=== PATIENT | female | born 1940 | race Caucasian/White ===

== ENCOUNTER 2017-04-10 16:28 | Emergency (ER) | payer MEDICARE ==
[~2017-04-10] VITALS: Ht 170.2 cm; Wt 94.5 kg
[~2017-04-10 16:28] MED LIST: ACETAMINOPHEN1 EACH PO; ADVIL PM LIQUI1 EACH PO; ALBUTEROL2.5 MG/3 M INH; ALPHAGAN P5 M1 OD; ASPIRIN EC81 MG PO; B-121000 MC1; CALCIUM 250+D1 EACH PO; CEFUROXIME500 MG PO; COLACE100 MG; DEMADEX10 MG PO; ENALAPRIL MALEA10 MG PO; ENALAPRIL MALEA20 MG PO; GABAPENTIN100 MG PO; ICAPS AREDS FO1 EACH PO; IPRAT-ALBUT 0.5-3 ML INH; ISOSORBIDE MONO30 MG PO; LASIX20 MG; LEVAQUIN500 MG PO; LIPITOR40 MG PO; LUMIGAN2.5 M1 OU; METOPROLOL TART50 MG PO; MIRALAX17 GM PO; MUCINEX600 MG PO; NITROSTAT0.4 MG SL; PERFOROMIS20 MCG/2 M INH; POTASSIUM CHLO10 MEQ; POTASSIUM CHLO10 MEQ PO; PREDNISONE20 MG PO; PRILOSEC10 MG PO; PRILOSEC20 MG PO; PROAIR HFA8.5 GM INH; PULMICORT0.5 MG/2 M INH; SENOKOT8.6 MG PO; SPIRIVA RESPIMAT4 GM IH; SPIRIVA18 MCG; TORSEMIDE20 MG PO; TYLENOL325 MG PO; VASOTEC20 MG; VASOTEC20 MG PO; WARFARIN SODIUM5 MG
--- NOTE | 2017-04-10 22:37 | EKG ---
[facility] [address] [facility] [place] [address] Signed Normal sinus rhythm Possible Left atrial enlargement Borderline ECG When compared with ECG of 08-MAR-2017 10:38, premature ventricular complexes are no longer present Vent. rate has decreased BY [address] no longer depressed in Lateral leads Confirmed by CONNIE QUIGLEY MD ([id number]) on 04/10/2017 10:37:22 PM Electronically Signed By: CONNIE QUIGLEY MD 04/10/17 2237 PATIENT NAME: MAAME DENIS Electrocardiogram DATE OF : 42 PHYSICIAN: CONNIE QUIGLEY MD REPORT #: [id number] REPORT IS CONFIDENTIAL AND NOT TO BE RELEASED WITHOUT AUTHORIZATION
== END 2017-04-10 20:16 | disposition home or self-care (01) ==
LOC: ED 16:28
DX: I11.0 Hypertensive heart disease with heart failure (principal); I50.9 Heart failure, unspecified; J44.9 Chronic obstructive pulmonary disease, unspecified; I25.2 Old myocardial infarction; Z87.891 Personal history of nicotine dependence; Z86.73 Personal history of transient ischemic attack (TIA), and cerebral infarction without residual deficits; Z90.49 Acquired absence of other specified parts of digestive tract; Z90.711 Acquired absence of uterus with remaining cervical stump; Z91.040 Latex allergy status; Z88.5 Allergy status to narcotic agent; Z88.8 Allergy status to other drugs, medicaments and biological substances; Z79.82 Long term (current) use of aspirin; Z79.899 Other long term (current) drug therapy
CPT/HCPCS: 71010; 80053; 83880; 84484; 85025; 93005; 93010; 94660; 96374; 99283

== ENCOUNTER 2017-08-01 15:53 | Inpatient (IN) | payer MEDICARE ==
[~2017-08-01] VITALS: Ht 170.2 cm; Wt 94.3 kg
[2017-08-01] MEDS ORDERED: OMEPRAZOLE20 MG PO (16:12)
--- NOTE | 2017-08-01 19:23 | EKG ---
[facility] [address] [place], [place] [address] Signed Normal sinus rhythm Normal ECG When compared with ECG of 10-APR-2017 18:04, No significant change was found Confirmed by CONNIE QUIGLEY MD ([id number]) on 08/01/2017 7:23:48 PM Electronically Signed By: CONNIE QUIGLEY MD 08/01/171922 PATIENT NAME: MAAME DENIS Electrocardiogram DATE OF : 42 PHYSICIAN: CONNIE QUIGLEY MD REPORT #: [id number] REPORT IS CONFIDENTIAL AND NOT TO BE RELEASED WITHOUT AUTHORIZATION
--- NOTE | 2017-08-01 20:00 | NUR ---
PATIENT ADMISSION COMPLETED. PATIENT IS AAOX3. PATIENT OREIENTED TO ROOM, AND FLOOR. PATIENT EDUCATED ON THE USE OF THE CALL LIGHT. PATIENT DENIES ANY NEEDS AT THIS TIME. SON AT THE BEDSIDE AND WILL NOT BE STAYING WITH THE PATIENT. CALL LIGHT IN REACH. RT NOTIFIED TO ASSIST WITH HOME CPAP SETUP. PATIENT IS ON 4L VIA NC AND THIS IS CHRONIC FOR HER. PATIENT ALSO GIVEN A SANDWICH BOX PER REQUEST. CALL LIGHT IN REACH.
--- NOTE | 2017-08-01 20:00 | NUR ---
RECEIVED REPORT [id number]. FOUND PT IN CHAIR. PT HAD SOME SOB BUT HER BREATHING WAS NOT LABORED. PT COMPLAINED OF BACK PAIN IN HER LOWER BACK.
--- NOTE | 2017-08-01 22:00 | NUR ---
SBP WAS 209 UPON ARRIVAL TO FLOOR. PT AT TIMES IS TACHY 100-110. MD DENISE IS AWARE. PT IS ALERT AND ORIENTED X4 RIGHT LOWER LOBE HAS CRACKLES, ALL OTHER LOBES ARE DIMINISHED. PT WILL WEAR C-PAP ALL NIGHT. OTHER V/S ARE WDL. PT HAS EDEMA +2 BILATERAL ON ANKLES AND FEET. PT HAS BRUISING ALL OVER BOTH ARMS. RT WAS CALLED BECAUSE EVEN WITH HER C-PAP ON PT IS ONLY SATING IN THE MID TO UPPER 80'S. OVERALL PT IS SOMEWHAT WEAK.
--- NOTE | 2017-08-02 00:46 | NUR ---
PT IS RESTING AT THIS TIME.
--- NOTE | 2017-08-02 02:12 | NUR ---
V/S ARE WDL. ALL LOBES ARE STILL THE SAME WITH THE FIRST ASSESSMENT. O2 SATS ARE >90% WITH C-PAP. PT IS IN BED RESTING. PT DENIES PAIN AT THIS TIME. PT AT THIS TIME IS IN NORMAL SINUS RHYTHM.
--- NOTE | 2017-08-02 04:07 | NUR ---
PT IS SLEEPING AT THIS TIME. RT FITTED HER C-PAP MASK BETTER AND AT THIS TIME HER O2 SATS ARE 90%.
--- NOTE | 2017-08-02 05:22 | NUR ---
PT ARRIVED ON FLOOR ATOUND 1999. AT ARRIVAL SBP WAS 209, MD DENISE WAS MADE AWARE. PT HAS HAD HER HOME C-PAP ON ALL NIGHT. RT HAD TO ADJUST HER MASK X2 DUE TO ILL FIT WHICH LEFT HER O2 SATS IN THE MID 80'S. PROBLEMS SEEMS TO HAVE BEEN RESOLVED. RIGHT LOWER LOBES HAS CRACKLES, ALL OTHER LOBES ARE CLEAR BUT DIMNINISHED. PT IS A/O X4. PT IS A LITTLE WEAK AND HAS ACTIVITY INTOLERANCE. PT HAS BEEN SLEEPING A GOOD BIT SINCE ARRIVAL ON THIS FLOOR. NO NEW ISSSUES NOTED SO FAR.
--- NOTE | 2017-08-02 06:12 | NUR ---
RECEIVED CRITICAL LAB VALUE FROM LEIGHA IN LAB. NOTIFIED HOSPITALIST. NO NEW ORDERS AT THIS TIME.
--- NOTE | 2017-08-02 07:20 | NUR ---
BEDSIDE REPORT RECEIVED FROM SHARLENE DE LOS SANTOS. PT SLEEPING IN BED. CPAP ON, PT SPO2 92%. WILL CONTINUE TO MONITOR.
--- NOTE | 2017-08-02 08:40 | NUR ---
VERIFIED BLOOD BAND WITH LAB. PT SITTING UP AT SIDE OF BED EATING BREAKFAST. 4L OXYGEN NC ON PT. PT HAS CALL LIGHT. FAMILY IN ROOM.
--- NOTE | 2017-08-02 09:00 | NUR ---
During assessment, patient complained of drowsiness so her helped her put her CPAP on.
--- NOTE | 2017-08-02 09:33 | NUR ---
PT ASSESSMENT COMPLETE. PT SITTING UP IN CHAIR, CPAP ON 4L NC. PT'S LUNGS CLEAR ON ENTRY, FINE CRACKLES NOTED IN BASES BILATERALLY. PT STATES SHE HAS NOT HAD BM IN TWO DAYS, NORMALLY TAKES SENNA AT HOME. BOWEL TONES ACTIVE X 4. PT HAS BRUISING ON ARMS BILATERALLY, SKIN HAS POOR TURGOR, INTACT. PT ALERT AND ORIENTED. CALL LIGHT IN REACH. WILL CONTINUE TO MONITOR.
--- NOTE | 2017-08-02 09:37 | NUR ---
SPOKE TO DR. QUIGLEY REGARDING PT HOME SENNA USE DAILY, DR. QUIGLEY TO ORDER.
--- NOTE | 2017-08-02 10:12 | NUR ---
BLOOD TRANSFUSION STARTED, VERIFIED PT AND BLOOD WITH SHARLENE PINO. PT INFORMED OF ADVERSE REACTIONS, TO NOTIFY IF EXPERIENCING SYMPTOMS OF TRANSFUSION REACTION. PT VITALS STABLE. PT SITTING UP IN BED, CPAP ON, CONTINUOUS PULSE OX ON. BLOOD INFUSING AT 75 ML/HR.
--- NOTE | 2017-08-02 10:30 | NUR ---
PT TOLERATING BLOOD TRANSFUSION, NO ADVERSE REACTIONS EVIDENT. PT VITAL SIGNS STABLE, AFEBRILE. PT NOT SOB. TRANSFUSION NOW INFUSING AT 125 ML/HR. PT DROWSY, CPAP ON 4L O2. SPO2 95%, HR 73. CALL LIGHT IN REACH. WILL CONTINUE TO MONITOR.
--- NOTE | 2017-08-02 11:14 | NUR ---
VITALS TAKEN AFTER 1 HR OF BLOOD TRANSFUSION. VITALS STABLE, SPO2 93% ON 4L CPAP. PT HR 70, BP 160/51, RR 22. PT STATES THAT SHE "IS ANXIOUS, HAS A LOT ON HER MIND". PT LUNGS CLEAR IN UPPER LOBES, CRACKLES AUSCULTATED LEFT LOWER LOBE, RIGHT LOWER LOBE CLEAR. SOME WHEEZES PRESENT ON EXPIRATION. FINDINGS CONSISTENT WITH ASSESSMENT PRIOR TO BLOOD ADMIN. PT HAS CALL LIGHT, IV SITE WNL. BLOOD INFUSING AT 125 ML/HR.
--- NOTE | 2017-08-02 11:21 | NUR ---
Patient assisted to the bedside commode. Transferred one person assist well. Urine output was 300ml. Blood transfusion continues to run at 125ml/hr.
--- NOTE | 2017-08-02 11:48 | NUR ---
PHONE CALL RECEIVED FROM PT'S DAUGHTER TAMIE, UPDATED ON STATUS OF PT, PLAN OF CARE.
--- NOTE | 2017-08-02 12:10 | NUR ---
PT SITTING UP IN BED EATING LUNCH. BLOOD INFUSING AT 125 ML/HR. UPDATED PT ON DAUGHTERS PHONE CALL. PT HAS 4L NC ON, STUDENT NURSE IN ROOM. CALL LIGHT IS IN REACH.
--- NOTE | 2017-08-02 13:02 | NUR ---
The patient remained on 4L O2 all day; switched to nasal cannula from CPAP during meals. Pt O2 saturation remained in 87-90s all day during rest. During ativity O2 sat would drop but remain above 80. The patient received a bed bath. Pt in the process of recieving a blood transfusion and tolerating well.
--- NOTE | 2017-08-02 13:20 | NUR ---
SECOND UNIT OF PACKED RED BLOOD CELLS INFUSING AT 75 ML/HR. IV SITE WNL, FLUSHES WELL, PULLS BACK BLOOD. PT VITAL SIGNS BP 173/48, AFEBRILE, PT SPO2 95% ON 4L NC. IV LASIX GIVEN PRIOR TO STARTING SECOND UNIT PER ORDER. WILL CONTINUE TO MONITOR.
--- NOTE | 2017-08-02 13:40 | NUR ---
PT VITAL SIGNS AT 15MIN OF BLOOD INFUSION 92% ON 4L CPAP, BP 152/45, TEMP 98.4, RR 24. PT RESTING IN BED, DROWSY. PT DENIES ANY SOB. CRACKLES NOT HEARD ON AUSCULTATION OF LUNGS, LUNGS CLEAR THROUHGOUT ALL LOBES AT THIS TIME. PT HAS CALL LIGHT, PERSONAL SUPPLIES IN REACH. NO ADDITIONAL REQUESTS AT THIS TIME.
--- NOTE | 2017-08-02 13:43 | NUR ---
RED BLOOD CELLS NOW INFUSING AT 125 ML/HR, IV SITE WNL. WILL CONTINUE TO MONITOR. PT HAS CALL LIGHT.
--- NOTE | 2017-08-02 13:52 | NUR ---
PT IS RESTING IN BED SAFELY WITH EYES CLOSED, RESPERATIONS EVEN. PT DID NOT NEED VITALS TAKEN DUE TO BEING TAKEN FREQUENTLY FOR BLOOD TRANSFUSION
--- NOTE | 2017-08-02 15:30 | NUR ---
PT ASSESSMENT COMPLETE. WHEEZES PRESENT SPORADICALLY THROUGHOUT ALL LUNG LOBES, NO CRACKLES AUSCULTATED, OTHERWISE CLEAR ON ENTRY. PT DENIES FEELING SOB. IV WNL, BLOOD INFUSING AT 125 ML/HR. PT HAS CALL LIGHT IN REACH. WILL CONTINUE TO MONITOR.
--- NOTE | 2017-08-02 16:00 | NUR ---
SECOND UNIT OF RED BLOOD CELLS INFUSED. PT SATURATING AT 95% SPO2. BROUGHT PT TOOTHBRUSH AND WARM WASH RAG REQUESTED. ASSISTED PT TO BEDSIDE COMMODE. PT COMPLAINING OF DIZZINESS, ASSISTED BACK TO BED, SPO2 88%, INCREASES TO 95% WITH COACHED PURSED LIP BREATHING ON 4L NC. PT BP CHECKED 176/68 W MANUAL BP. PT THEN ASSITED TO CHAIR. FAMILY IN ROOM AT THIS TIME, BROUGHT COFFEE AND WATER TO PT AND GUESTS.
--- NOTE | 2017-08-02 16:37 | NUR ---
PATIENT GOT A BED BATH ALSO HER HAIR WASHED.
--- NOTE | 2017-08-02 18:00 | NUR ---
ANSWERED PT CALL LIGHT. PT STANDING AT BEDSIDE WHEN ARRIVED TO ROOM. EDUCATED PT ON SAFETY, TO WAIT FOR ASSISTANCE W AMBULATION. PT ASSISTED TO CHAIR, GAVE PT NEW ICE PACKS. PT STATES PAIN IS 7/10 WITH MOVEMENT IN LEFT SHOULDER/ARM. PT STATES "ICE HELPS". INFORMED PT ON PRN MEDICATIONS AND WHEN NEXT MED AVAILABLE. PT PERSONAL BELONGINS, CALL LIGHT WITHIN REACH.
--- NOTE | 2017-08-02 18:50 | NUR ---
PT RECEIVED 2 UNITS RBCS TODAY. PT TOLERATED WELL. BP CONTINUES TO BE ELEVATED THIS AFTERNOON. IV LASIX WAS ADMINISTERED BETWEEN BLOOD UNIT INFUSIONS. PT HAS HAD BED ALARM AND CHAIR ALARM IN PLACE THROUGHOUT SHIFT CONFUSED AT TIMES. PT USED BED SIDE COMMODE WITH SBA.
--- NOTE | 2017-08-02 19:15 | NUR ---
REPORT RECVD FROM ROXANNA SU, PT AWAKE SITTING UP IN BED. PT STATES SHE IS TIRED TONIGHT. CPAP IN PLACE. NO FURTHER NEEDS AT THIS TIME. BED ALARM IN PLACE PT HAS APPEARED ANXIOUS TODAY. NO FURTHER NEEDS AT THIS TIME. CALL LIGHT IN REACH.
--- NOTE | 2017-08-02 19:45 | NUR ---
IN TO SEE PT, PT AWAKE REQUESTING PM MEDICATION. VITALS OBTAINED, PM MEDICATIONS GIVEN. ASSESSMENT COMPLETE. RT IN ROOM TO WORK WITH PT. PT TOLERATED WELL. NO FURTHER NEEDS AT THIS TIME. CHAIR ALARM IN PLACE, CALL LIGHT IN REACH.
--- NOTE | 2017-08-02 21:53 | NUR ---
PATIENT IN BED, GOT HER A WARM BLANKET. DOES NOT NEED ANYTHING ELSE AT THIS TIME.
--- NOTE | 2017-08-02 22:17 | NUR ---
IN TO CHECK ON PT, PT AWAKE WATCHING TV. CPAP IN PLACE AND PULSE OX IN PLACE. NO FURTHER NEEDS AT THIS TIME. CALL LIGHT IN REACH.
--- NOTE | 2017-08-02 23:44 | NUR ---
IN TO CHECK ON PT, PT AWAKE IN BED. PT STATES SHE HAS DIFFICULTY SLEEPING AT HOME. PT NOTIFIED THAT SHE WAS GIVEN BENADRYL 50 MG AT BEDTIME, BUT WILL PASS ON TO DAY SHIFT THAT PT CONTINUES TO HAVE DIFFICULTY SLEEPING. PT AGREES TO PLAN. CPAP AND PULSE OX IN PLACE. NO FURTHER NEEDS AT TIS TIME. CALL LIGHT IN REACH.
--- NOTE | 2017-08-02 23:51 | NUR ---
PATIENT ASLEEP, DOES NOT NEED ANYTHING AT THIS TIME.
--- NOTE | 2017-08-03 01:30 | NUR ---
IN TO CHECK ON PT, PT APPEARS TO BE SLEEPING. CPAP AND PULSE OX IN PLACE. RR EVEN AND UNLABORED. NO APPARENT DISTRESS NOTED. CALL LIGHT IN REACH.
--- NOTE | 2017-08-03 02:04 | NUR ---
GOT PATIENT UP TO COMMODE AND THEN BACK TO BED. PATIENT DOES NOT NEED ANYTHING ELSE AT THIS TIME.
--- NOTE | 2017-08-03 03:24 | NUR ---
IN TO CHECK ON PT, PT AWAKE. CPAP IN PLACE AND PULSE OX @ 88%. RT IN TO SEE PT. PT REQUESTING COLA, GIVEN. NO FURTHER NEEDS AT THIS TIME. CALL LIGHT IN REACH.
--- NOTE | 2017-08-03 03:46 | NUR ---
PATIENT ASLEEP. DOES NOT NEED ANYTHING AT THIS TIME.
--- NOTE | 2017-08-03 03:56 | NUR ---
PT HAS BE UNABLE TO SLEEP THROUGH OUT THE NIGHT. O2 @ 4L PER NC, CPAP AT NIGHT. PULSE OX IN PLACE, O2 SATS 88-94%. LUNGS CLEAR BUT DIMINISHED. SOB WITH EXERTION, PT UP TO BSC AND SHORT DISTANCES. TELE #1, NSR. PT RECVD 2 UNIT PRBC 08/02/17 DURING DAY SHIFT. IV SL. BED ALARM IN PLACE PT HAD BEEN ANXIOUS AND SLIGHTLY FORGETFUL DURING DAY SHIFT. PT HAS CALL APPROPRIATLY DURING SHIFT.
--- NOTE | 2017-08-03 06:45 | NUR ---
PT CALLED REQUESTING HELP UP TO CHAIR. STANDBY ASSIST BY BLEACH MACHINE OPERATOR WITH RN IN ROOM. PT TOLERATED WELL. CPAP AND PULSE OX IN PLACE. NO FURTHER NEEDS AT THIS TIME. CALL LIGHT IN REACH.
--- NOTE | 2017-08-03 08:20 | NUR ---
PT SITTING UP IN RECLINER AWAKE UPON INITIAL ASSESSMENT. ON 4L 02 VIA NC. LUNGS SLIGHTLY WHEEZY THROUGHOUT-- BASELINE. DR QUIGLEY IN TO ASSESS PATIENT THIS MORNING. BP 168/85 BEFORE LOPRESSOR. NO CONCERNS OR NEEDS AT THIS TIME. PT SET UP FOR BREAKFAST. POSSIBLE DISCHARGE TODAY. SON ABLE TO TRANSPORT PATIENT HOME IF NEEDED.
[2017-08-03] MEDS ORDERED: PREDNISONE20 MG PO (08:46)
== END 2017-08-03 10:20 | disposition home or self-care (01) | DRG 190 ==
LOC: ED 15:53 → MS 19:09
PROVIDERS: ADMIT Internal Medicine
PROC: 30233N1 Transfusion of Nonautologous Red Blood Cells into Peripheral Vein, Percutaneous Approach (ICD-10-PCS; principal; 2017-08-01)
PROC: 3E0234Z Introduction of Serum, Toxoid and Vaccine into Muscle, Percutaneous Approach (ICD-10-PCS; 2017-08-03)
DX: J44.1 Chronic obstructive pulmonary disease with (acute) exacerbation (principal); I50.21 Acute systolic (congestive) heart failure; J96.11 Chronic respiratory failure with hypoxia; G47.33 Obstructive sleep apnea (adult) (pediatric); I25.10 Atherosclerotic heart disease of native coronary artery without angina pectoris; D50.9 Iron deficiency anemia, unspecified; I11.0 Hypertensive heart disease with heart failure; G47.00 Insomnia, unspecified; I25.2 Old myocardial infarction; Z23 Encounter for immunization; Z99.81 Dependence on supplemental oxygen; Z87.891 Personal history of nicotine dependence
CPT/HCPCS: 36415; 36430; 36600; 71010; 80048; 80053; 82803; 83605; 83735; 83880; 84100; 84484; 85025; 86850; 86900; 86901; 86920; 90662; 93005; 93010; 94640; 94762; 97165; G0008; J2930; J7512; P9016; Q0163

== ENCOUNTER 2017-08-17 13:54 | Inpatient (IN) | payer MEDICARE ==
[~2017-08-17] VITALS: Ht 170.2 cm; Wt 88.0 kg
[~2017-08-17 13:54] MED LIST changes: +OMEPRAZOLE20 MG PO
[2017-08-17] MEDS ORDERED: CLOPIDOGREL75 MG PO (14:05)
--- NOTE | 2017-08-18 21:46 | EKG ---
[facility] [address] [facility] [place] [address] Signed Normal sinus rhythm Possible Left atrial enlargement Borderline ECG When compared with ECG of 01-AUG-2017 16:22, No significant change was found Confirmed by LA VELIZ MD ([id number]) on 08/18/2017 9:45:56 PM Electronically Signed By: LA VELIZ MD 08/18/17 2146 PATIENT NAME: CIRAMAAME GI Electrocardiogram DATE OF : 42 PHYSICIAN: LA VELIZ MD REPORT #: [id number] REPORT IS CONFIDENTIAL AND NOT TO BE RELEASED WITHOUT AUTHORIZATION
--- NOTE | 2017-08-19 22:34 | EKG ---
[facility] [address] [facility] [place] [address] \T\ T wave abnormality, consider inferior ischemia Abnormal ECG When compared with ECG of 17-AUG-2017 15:38, Vent. rate has increased BY [address] now depressed in Inferior leads ST now depressed in Anterolateral leads T wave inversion now evident in Inferior leads Confirmed by LA VELIZ MD ([id number]) on 08/19/2017 10:34:22 PM Electronically Signed By: LA VELIZ MD 08/19/17 2234 PATIENT NAME: MAAME DENIS Electrocardiogram DATE OF : 42 PHYSICIAN: LA VELIZ MD REPORT #: [id number] REPORT IS CONFIDENTIAL AND NOT TO BE RELEASED WITHOUT AUTHORIZATION
[2017-08-19] MEDS ORDERED: CEFPODOXIME PR200 MG PO (23:39)
[2017-08-19] MEDS ORDERED: ISOSORBIDE MONO30 MG PO (23:39)
[2017-08-19] MEDS ORDERED: PREDNISONE20 MG PO (23:39)
[2017-08-20] MEDS ORDERED: TORSEMIDE20 MG PO (10:51)
[2017-08-20] MEDS ORDERED: AMLODIPINE BESYL5 MG PO (10:52)
== END 2017-08-20 11:45 | disposition home or self-care (01) | DRG 191 ==
LOC: ED 13:54 → MS 18:59
PROVIDERS: ADMIT Internal Medicine
DX: J44.1 Chronic obstructive pulmonary disease with (acute) exacerbation (principal); J96.12 Chronic respiratory failure with hypercapnia; J96.11 Chronic respiratory failure with hypoxia; N18.4 Chronic kidney disease, stage 4 (severe); I25.118 Atherosclerotic heart disease of native coronary artery with other forms of angina pectoris; I12.9 Hypertensive chronic kidney disease with stage 1 through stage 4 chronic kidney disease, or unspecified chronic kidney disease; K21.9 Gastro-esophageal reflux disease without esophagitis; Z91.14 Patient's other noncompliance with medication regimen; Z90.711 Acquired absence of uterus with remaining cervical stump; Z87.891 Personal history of nicotine dependence; I25.2 Old myocardial infarction; Z99.81 Dependence on supplemental oxygen
CPT/HCPCS: 36415; 71020; 80048; 80053; 82803; 83605; 83880; 84484; 85025; 85379; 87040; 87070; 87077; 87186; 87205; 93005; 93010; 94640; 94760; J0696; J1650; J2920; J2930; J7030; J7512

== ENCOUNTER 2017-12-16 04:31 | Inpatient (IN) | payer MEDICARE ==
[~2017-12-16] VITALS: Ht 170.2 cm; Wt 82.6 kg
[~2017-12-16 04:31] MED LIST changes: -ALPHAGAN P5 M1 OD; +ALPHAGAN P5 M1 OS; +AMLODIPINE BESYL5 MG PO; +CALCET CREAMY1 EACH PO; -CALCIUM 250+D1 EACH PO; +CEFPODOXIME PR200 MG PO; +CLOPIDOGREL75 MG PO
--- NOTE | 2017-12-16 06:20 | EKG ---
[facility] [address] [facility] [place] [address] Signed Normal sinus rhythm Nonspecific ST abnormality Abnormal ECG When compared with ECG of 19-AUG-2017 09:04, ST no longer depressed in Anterior leads Confirmed by CONNIE QUIGLEY MD ([id number]) on 12/16/2017 6:20:30 AM Electronically Signed By: CONNIE QUIGLEY MD 12/16/17 0620 PATIENT NAME: CIRAMAAME GI Electrocardiogram DATE OF : 42 PHYSICIAN: CONNIE QUIGLEY MD REPORT #: [id number] REPORT IS CONFIDENTIAL AND NOT TO BE RELEASED WITHOUT AUTHORIZATION
--- NOTE | 2017-12-16 06:50 | NUR ---
PATIENT ARRIVED VIA STRETCHER. PATIENT WAS ABLE TO PIVOT TRANSFER FROM THE STRETCHER TO THE RECLINER. PATIENT IS ON BIPAP AT THIS TIME. PATIENT HAS SOB W/ACTIVITY. PATIENT HAS SOB WITH TALKING AT THIS TIME. PATIENT ADMISSION COMPLETED. PATIENT IS AAOX3. PATIENT OREINTED TO ROOM, AND FLOOR. PATIENT EDUCATED ON DIET. NO NEEDS NOTED. TELE #[address] CALL LIGHT IN REACH.
--- NOTE | 2017-12-16 07:33 | NUR ---
RECIEVED BEDSIDE REPORT FROM SHARLENE BROOKS. PT IN CHAIR IN TRIPOD POSITION, WITH CPAP ON. BREATHING LABORED. FAMILY WILL BRING IN HOME CPAP.
--- NOTE | 2017-12-16 08:15 | NUR ---
PT IN CHAIR AWAKE. TOOK TO BR. AM CARE.
--- NOTE | 2017-12-16 09:19 | NUR ---
PT REFUSED AM MEDS EXCEPT MIRALAX AND LOVENOX. SHE STATED SHE TOOK HER OTHER MEDS BEFORE SHE GOT IN THE AMBULANCE THIS AM. ADVISED DR QUIGLEY, SHE IS OK WITH HER NOT TAKING AM MEDS. PT TOOK MIALAX AND LOVENOX.
--- NOTE | 2017-12-16 10:30 | NUR ---
VITALS AND I AND O DONE
--- NOTE | 2017-12-16 10:43 | NUR ---
SHARLENE SPARKS STARTED NEW IV IN RIGHT AC. PT HAS LIMITED VEIN ACCESS. ATTEMPTED X3. PT TOLERATED WELL. IV ABX RUNNING.
--- NOTE | 2017-12-16 10:51 | NUR ---
PT REQUESTED PRN BREATHING TREATMENT. CALL PLACED TO ANASTASIIA IN RT, HE WILL COME UP.
--- NOTE | 2017-12-16 10:56 | NUR ---
SPOKE WITH MAAME WHO AUTHORIZED ME TO TALK TO HER GRANDDAUGHTER MARLENI AND DAUGHTERS TAMIE AND ROXANNE. TAMIE CALLED AND THIS RN GAVE AN UPDATE. THIS RN ALSO CALLED MARLENI.
--- NOTE | 2017-12-16 12:31 | NUR ---
PT WAS SITTINGI IN CHAIR W/CPAP ON. PT SEEMED SOMEWHAT GROOGY. SHE AWOKE WHEN I CAME IN, TOLD HER I WOULD COME BACK TO LET HER ORIENT MORE. SHE AGREED
--- NOTE | 2017-12-16 12:33 | NUR ---
REMOVED PT FROM BIPAP TO NASAL CANULA SO SHE COULD EAT LUNCH. PLACED NC AT 5L. RT AND MD NOTIFIED.
--- NOTE | 2017-12-16 12:34 | NUR ---
PT IN BED SLEEPING. WILL CHECK BACK ON LATER
--- NOTE | 2017-12-16 14:01 | NUR ---
PT BACK ON CPAP. PT TOLERATED NC WELL, LOWEST O2 LEVEL SEEN BY RN WAS 91% AT REST. WHEN TRANSFERING TO [facility] [place] DESAT TO 77%. PT VOIDED. RETURNED TO CHAIR AND REPLACED ON CPAP. PT RESTING IN CHAIR. PT STATES SHE SLEEPS IN CHAIR AT HOME, SHE DOES NOT LIKE LAYING FLAT. ONCE CPAP BACK ON, PT REBOUNDED TO LOW-90S O2.
--- NOTE | 2017-12-16 14:12 | NUR ---
PT SITTING IN CHAIR, WITH CPAP ON. SHE INVITED ME IN. SHOOK MY HAND, AND BEGAN TO TELL ME THAT SHE NEEDS SOME HELP. SHE IS ON CPAP VIRTUALLY ALL DAY, AND IS VERY UNHAPPY WITH LIFE. BASICALLY SHE FEELS SHE HAS NO LIFE. PT REQUESTED I PRAY FOR HER THAT GOD WOULD HELP HER. SHE CONFESSED THAT HE HAS BEFORE, AND SHE FEELS THAT ONLY GOD CAN HELP HER NOW. SHE USED TO ATTEND [facility] [place], BUT THE [facility] HAS SINCE CLOSED. I PRAYED FOR HER, SHE THANKED ME AND SAID SHE NEEDED TO STOP TALKING. WILL FOLLOW NEEDED
--- NOTE | 2017-12-16 15:31 | NUR ---
PT IN CHAIR WITH CPAP ON. SON AT BEDSIDE. BELONGINGS IN REACH, DENIES NEED FOR BSC. NO PAIN AT THIS TIME.
[2017-12-16] MEDS ORDERED: CATAPRES TTS TD (15:50)
[2017-12-16] MEDS ORDERED: TORSEMIDE20 MG PO (15:55)
[2017-12-16] MEDS ORDERED: NITROSTAT0.4 MG SL (16:25)
[2017-12-16] MEDS ORDERED: TUSSIN100 MG/51 PO (16:25)
[2017-12-16] MEDS ORDERED: VICKS VAPORUB O50 GM TOP (16:26)
[2017-12-16] MEDS ORDERED: ISOSORBIDE MONO30 MG PO (16:38)
--- NOTE | 2017-12-16 16:38 | NUR ---
MED REC COMPLETE
--- NOTE | 2017-12-16 18:06 | NUR ---
PT STAYED ON BIPAP MOST OF THE DAY. TWO TRIALS OF NASAL CANULA AT 5L FOR APROX 2 HR EACH. PT TOLERATED WELL, EXCEPT WITH TRANSFER TO BSC. VOIDING WELL, ON PO LASIX. AGB COMPLETE. STAND PIVOT TRANSFER TO BSC. IV STEROIDS. VERBAL OK FROM PT TO GIVE INFORMATION/UPDATES TO FAMILY WHO CALL.
--- NOTE | 2017-12-16 19:39 | NUR ---
ASSISTED PATIENT TO THE BEDSIDE COMMODE. PATIENT IS BACK ON THE CHAIR. PATIENT ASKED FOR NEB TREATMENT, SHARLENE BROOKS NOTIFIED. CALL LIGHT WITHIN REACH.
--- NOTE | 2017-12-16 19:41 | NUR ---
RECEIVED REPORT FROM DAY SHIFT RN. PATIENT IS RESTING IN RECLINER WITH BIPAP IN PLACE. NO NEEDS NOTED. CALL LIGHT IN REACH.
--- NOTE | 2017-12-16 19:50 | NUR ---
PATIENT IS EXTREMELY ANXIOUS SPOKE WITH DR VELIZ. DR VELIZ PUT IN NEW ORDER.
--- NOTE | 2017-12-16 20:29 | NUR ---
PATIENT ASSESMENT COMPLETED. RT IN THE ROOM ADMINISTERING A NEB TREATMENT. PATIENTS VITALS TAKEN AND RECORDED. PATIENTS EVENING MEDCIATIONS GIVEN PER ORDER. PATIENT IS EXTREMELY ANXIOUS. PATIENT GIVEN PRN MORPHINE PER ORDER. PATIENT GIVEN A COOL RAG FOR THE BACK OF HER NECK. PATIENTS LIGHTS TURNED DOWN TO DECREASE THE STIMULI. PATIENTS CALL LIGHT IN REACH.
--- NOTE | 2017-12-16 22:54 | NUR ---
PATIENT PLACED ON PULSE OX THROUGHT THE TELE. PATIENT HAS INCREASED ANXIETY WITH THE BEDSIDE PULSE OX. PATIENT DENIES ANY NEEDS AT THIS TIME. CALL LIGHT IN REACH. PATIENT REMAINS ON BIPAP AND RESTING IN RECLINER.
--- NOTE | 2017-12-16 23:52 | NUR ---
PATIENT GIVEN PRN TYLENOL FOR PAIN IN HER LOWER LEGS. PATIENT DENIES ANY FURTHER NEEDS AT THIS TIME. PATIENT REMAINS ON BIPAP. PATIENT REMAINS IN RECLINER. CALL LIGHT IN REACH.
--- NOTE | 2017-12-17 01:43 | NUR ---
PATIENT IS INCREASINGLY ANXIOUS. PATIENT GIVEN A PRN NEB PER REQUEST. PATIENT ALSO GIVEN PRN MORPHINE. PATIENTS VITALS TAKEN AND RECORDED. PATIENT ASSISTED TO THE BSC. PATIENT WAS ABLE TO VOID. PATIENT IS NOW BACK IN THE RECLINER. RESTING. NO FURTHER NEEDS. NOTED. PATIENT IS ON TELE #1, IRREGULAR RHYTHM, HR 89. CALL LIGHT IN REACH.
--- NOTE | 2017-12-17 03:38 | NUR ---
PATIENT PLACED A CALL TO HER SON ASKING HIM TO BRING IN HER CPAP. PATIENT EDUCATED THAT SHE IS CURRENTLY ON BIPAP. PATIENT VEBALIZED UNDERSTANDING. PATIENT IS FORGETFUL AT TIMES, BUT REORIENTS EASILY. PATIENT DENIES ANY NEEDS. PATIENTS SON IS NOT BRINGING MACHINE IN AT THIS TIME.
--- NOTE | 2017-12-17 04:16 | NUR ---
PATIENT ASSISTED TO THE BSC. PATIENT ABLE TO VOID. PATIENT HAS INCREASED RR AND SOB WITH ACTIVITY. DAILY WEIGHT RECORDED. PATIENT NOW RESTING IN RECLINER. PATIENT CONTINUES TO BE ON BIPAP. PATIENT DENIES ANY NEEDS. CALL LIGHT IN [facility].
--- NOTE | 2017-12-17 05:08 | NUR ---
PATIENT STRUGGLED TO REST DURING THE SHIFT. PATIENT IS ON CLEARS AT THIS TIME. PATIENT HAS PULSE OX IN PLACE. PATIENT IS SL AND IV FLUSHES WELL. PATIENT IS ON TELE #1, HR 80-90'S. PATIENT IS A [place] [place] [facility] [place]. PATIENT HAS INCREASED SOB WITH ACTIVITY. PATIENT HAS BEEN ON BIPAP FOR THE MAJORITY OF THE SHIFT. PATIENT PRN MORPHINE X2 FOR SOB. PATIENT RECIVED PRN TYLENOL X1 FOR PAIN IN HER LEGS. PATIENT IS FORGETFUL, REORIENTS EASILY. USES CALL LIGHT APPROPRIATELY.
--- NOTE | 2017-12-17 06:30 | NUR ---
PATIENTS MORNING MEDICATIONS GIVEN PER ORDER. PATIENT CONTIUES TO BE ANXIOUS AND SOB. PATIENT GIVEN PRN MORPHINE PER ORDER. PATIENTS PULSE OX READINGS ARE WNL. PATIENT DENIES ANY FURTHER NEEDS. PATIENTS CALL LIGHT IN REACH. PATIENT REMAINS ON BIPAP.
--- NOTE | 2017-12-17 07:16 | NUR ---
RECIEVED BEDSIDE REPORT FROM SHARLENE BROOKS. PT SITTING IN CHAIR WITH BIPAP ON. PT APPEARS AXIOUS, FIDGITTY AND RESTLESS. HR PER PULSE OX IN MID-80S, O2 IN HIGH 90S. FIO2 REDUCED OVERNIGHT TO 35%. URINE OUTPUT GOOD. PT A&O X3.
--- NOTE | 2017-12-17 08:15 | NUR ---
PATIENT UP TO BSC WITH ONE PERSON ASSIST THEN BACK TO CHAIR WITH CHAIR ALARM. ORAL CARE DONE. PATIENT WASHED HANDS AND FACE. THIS TIME STUDY STATISTICIAN ASSSITED PATIENT WITH COMBING HAIR AND PULLING IT UP IN A BUN. FRESH ICE WATER GIVEN. CALL BUTTON IN REACH. NO OTHER NEEDS AT THIS TIME.
--- NOTE | 2017-12-17 08:59 | NUR ---
PT IS VERY ANXIOUS, WHICH IS CAUSING SOB AND TACY HR. PER PT REQUEST CALLED RT FOR NEB TREATMENT. PT IS STARTING TO CALM DOWN.
--- NOTE | 2017-12-17 09:59 | NUR ---
PATIENT SITTING UP IN BEDSIDE RECLINER. RN IN THE ROOM GIVING MEDS. PATIENT IN A GOOD MOOD, TALKATIVE AND SMILEY. FRESH ICE WATER AT BEDSIDE TABLE. CALL LIGHT IN REACH. NO OTHER NEEDS AT THIS TIME.
--- NOTE | 2017-12-17 10:02 | NUR ---
PT ANXIETY IS SLIGHTLY REDUCED. SITTING IN CHAIR, HAS HAD MULTIPLE PHONE CALLS FROM FAMILY. ALL BELONGINGS IN REACH. NO NEEDS AT THIS TIME.
--- NOTE | 2017-12-17 10:17 | NUR ---
CAMILLE, HOME HEALTH RN, CAME TO DISCUSS PLAN OF CARE. COPY OF HH CARE PLAN PLACED IN CHART.
--- NOTE | 2017-12-17 10:36 | NUR ---
DICUSSED PT'S ANIEXTY WITH DR VELIZ. DR VELIZ GAVE VERBAL ORDER TO GIVE 1MG MS EARLY A ONE TIME DOSE. MS GIVEN, PLACED CALL TO PT'S SON PER HER REQUEST. PT O2 LEVEL 98
--- NOTE | 2017-12-17 11:02 | NUR ---
PT TALKED TO SHARLENE MIDDLETON. PT STATED THAT SHE FEELS LIKE SHE IS GOING TO TODAY. SHE STATED SHE IS TIRED OF FIGHTING, SHE DOES NOT WANT TO FIGHT, SHE IS SICK. SHE HAS STATED SEVERAL TIMES THAT SHE FEELS SHE IS GOING TO . SHE STATED THAT SHE WANTED TO SHE HER GRANDDAUGHTER'S BABY DUE SOON, BUT IS NOT GOING TO GET THE CHANCE. SHARLENE SPARKS SPOKE TO SEVERAL FAMILY MEMBERS UPDATING THEM. DR VELIZ IS AWARE, WILL WAIT UNTIL FAMILY HAS A CHANCE TO TALK TOGETHER BEFORE CHANGING ANY TREATMENT PLANS. FAMILY HAS TALKED TO PT.
--- NOTE | 2017-12-17 12:33 | NUR ---
PT REPORTS ONGOING NAUSEA. DR VELIZ ROUNDED WITH RN. LUNGS ARE CLEAR, EDEMA IN LOWER LEGS. DR VELIZ WILL GIVE ORDERS FOR ANOTHER ANTIEMETIC.
--- NOTE | 2017-12-17 13:05 | NUR ---
THIS DIRECTOR OF MARKETING [employer] ADS ASSISTED PATIENT FROM THE CHAIR TO THE BEDSIDE COMMODE. 1PERSON SBA. THEN OFF THE COMMODE TO THE CHAIR. PATIENT NOW RESTING IN CHAIR. CALL LIGHT WITHIN REACH. PATIENTS O2 SATS LOWERED TO 77% ON 3L NASAL CANULA WHEN TRANSFERRING. CHARGE NURSE INFORMED. CHARGE NURSE SAID TO INCREASE O2 TO 5L WHEN TRANSFERRING.
--- NOTE | 2017-12-17 13:24 | NUR ---
PT WAS OFF CPAP, INVITED ME IN. PT SOMEWHAT ALERT-ENOUGH TO TELL ME SHE IS STRUGGLING WITH END OF LIFE DECISION. PT MENTIONED THAT SHE IS TIRED OF HAVING TO LIVE WITH CPAP 20 HRS EACH DAY. APPEARS THOUGH HER CHILDREN HAVE MAYBE UNREAL EXPECTATIONS FOR HER RECOVERY. PT SEEMS TO MAKE A DECISION, AND HER FAMILY PERSUADES HER OTHERWISE-BUTIS NOT WHAT SHE SEEMS TO WANT. PT REQUESTED PRAYER FOR WISDOM TO MAKE THE RIGHT CHOICE FOR HER. GAVE HER A PRAYER SHAWL, SHE SEEMED PLEASED. WILL STAY CONNECTED NEEDED
--- NOTE | 2017-12-17 13:37 | NUR ---
PATIENT SITTING UP IN BEDSIDE RECLINER VISITING WITH FAMILY MEMBER. TONY OLMSTEAD ASSISTED PATIENT WITH PUTTING HAIR UP IN BUN. FRESH WATER AT BEDSIDE TABLE. CALL LIGHT IN REACH. NO OTHER NEEDS AT THIS TIME.
--- NOTE | 2017-12-17 14:20 | NUR ---
PT IS STATING "I NEED HELP. I THINK I AM ON MY WAY OUT." O2 IS BETWEEN 88-90% ON 5L NASAL CANULA. REPLACED MASK.
--- NOTE | 2017-12-17 14:37 | NUR ---
PT IS VERY ANXIOUS AND RESTLESS. HAS BEEN REMOVING MASK AND REMOVING NASAL CANULA. MASK DOES NOT APPEAR TO BE FITTING WELL. RT AT BEDSIDE TO ADJUST FIT OF MASK.
--- NOTE | 2017-12-17 14:42 | NUR ---
CALLED DR VELIZ RE: AIR HUNGER, ANXIETY. DR VELIZ GAVE TELEPHONE ORDER TO CHANGE MORPHINE ORDER TO Q4HR. ORDER CHANGED.
--- NOTE | 2017-12-17 16:12 | NUR ---
PT'S SON PARESH SPOKE WITH DR VELIZ AT THE NURSES STATION. PARESH STATED THAT "IN HER RIGHT MIND, SHE WANTS TO BE FULL CODE, SO WE'LL JUST DO ALL WE CAN. SHE'S TOUGH. SHE'LL JUST BOUNCE BACK." DR VELIZ WILL CHECK CO2 AND SEND PT TO THE UNIT.
--- NOTE | 2017-12-17 16:34 | NUR ---
SON REPORTED PATIENT NEEDED TO VOID. BSC PLACED NEXT TO CHAIR. PATIENT STOOD WITH 1PA AND WAS DIRECTED TO SIT ON BSC. PATIENT CONFUSED AND UNABLE TO FOLLOW DIRECTIONS. PATIENT PULLING AT CPAP TUBING, CONT PULS OX CORD. CALLED FOR SECOND NURSE TO HELP. PATIENT ATTEMPTING TO GO TOWARD BED. ASSISTED PATIENT INTO BED. RESPIRATORY THERAPY IN ROOM TO COLLECT ABG. SEVERAL NURSES AND SON AT BEDSIDE NOW.
--- NOTE | 2017-12-17 17:34 | NUR ---
PT PLACED BACK ON BIPAP BY RT. ABG RETURNED WORSE THAN AT ADMIT. SETTINGS CHANGED ON BIPAP.
--- NOTE | 2017-12-17 17:45 | NUR ---
PT PLACED ON BIPAP. LIGHTS DIMMED, SOOTHING MUSIC PUT ON. PT IS IN BED WITH HEAD OF BED ELEVATED. PT SITTING IN BED WITH EYES CLOSED.
--- NOTE | 2017-12-17 18:06 | NUR ---
PT HAD CHANGED OF CONDITION. SHE WAS TAKEN OFF BIPAP BY RT. PT HAD ACUTE INCREASE IN CONFUSION AND AGITATION. PT STATED MULTIPLE TIMES AND TO MULTIPLE PEOPLE THAT SHE "WAS GOING TO " AND SHE WAS "TIRED, TOO TIRED TO FIGHT". SHE ATTEMPTED TO CALL HER FAMILY MULTIPLE TIMES. 2 DAUGHTERS AND 2 SONS ARRIVED AT THE HOSPITAL. PT TOLD HER FAMILY SEVERAL TIMES THAT SHE "THOUGHT SHE WAS DYING". PT'S FAMILY STATED THAT SHE WAS "A TOUGH OLD GAL AND WILL BOUNCE BACK". FAMILY DECLINED TO CONSIDER CHANGING HER CODE STATUS. IV FLUIDS STARTED AT 75ML/HR. PT HAD VERY MINIMAL SLEEP AND MINIMAL INTAKE.
--- NOTE | 2017-12-17 19:35 | NUR ---
PT TRANSFERED TO CCU ROOM 129 WITH MULTIPLE RN ASSIST. PT TOLERATED WELL. PT AWAKE SITTING IN BED. PT IS ONLY ALERT TO SELF AT THIS TIME. WILL CONTINUE TO CLOSELY MONITOR.
--- NOTE | 2017-12-17 19:35 | NUR ---
PT TRANSFERED TO CCU FROM [facility] WITH NURSING STAFF. PT IN BED AND AWAKE ON TRANSFER. PT IS ONLY ORIENTED TO SELF AT THIS TIME. WILL CONTINUE TO CLOSELY MONITOR.
--- NOTE | 2017-12-17 19:41 | NUR ---
TRANSFERED PT TO CCU. REPORT GIVEN TO SHARLENE OGLESBY AND SHARLENE KISER. ALL PERSONAL BELONGINGS SENT WITH PT.
--- NOTE | 2017-12-17 19:50 | NUR ---
PT TRYING TO GET OUT OF BED. ASSISTED PT TO THE CHAIR FOR COMFORT. PT NOW SITTING IN THE TRIPOD POSITION IN THE CHAIR AND PICKING AT HER CORDS. REMINED NO TO TAKE CORDS OFF. WILL CONTINUE TO CLOSELY MONITOR.
--- NOTE | 2017-12-17 20:12 | NUR ---
CALLED MD TO UPDATE THAT THE PATIENT ARRIVED TO CCU AND TO UPDATE ON ABG RESULTS. MD AWARE OF RESULTS. UPDATED THAT PT HAS REMAINED RESTLESS AND HAS NOT SLEPT PER REPORT FROM MED-HISTORY TUTOR SINCE SHE WAS HOSPITALIZED. PER MD GIVE 12.5 SEROQUEL PRN FOR AGITATION. PER MD UPDATE HIM IF HER AGITATION AND RESTLESSNESS INCREASE. WILL CONTINUE TO CLOSELY MONITOR.
--- NOTE | 2017-12-17 20:30 | NUR ---
GAVE PT HER NIGHT TIME MEDICATIONS PT TOLERATED SWOLLOWING PILLS WITH NO ISSUES. BIPAP REMAINS ON. ASSESSMENT COMPLETED. PT BREATH SOUNDS ARE VERY DIMINISHED. PT PICKING AT OXIMETER AND PULLING OFF MASK OCCASIONALLY. ASSISTED TO TO THE BEDSIDE CAMMODE. PT HR UP TO 130 WITH ACTIVITY, LEFT BIPAP ON FOR TRANSFER. PT NOW BACK IN CHAIR. THIS RN SITTING IN ROOM WITH PT AT THIS TIME. WILL CONTINUE TO CLSOELY MONITOR.
--- NOTE | 2017-12-17 21:40 | NUR ---
PT RESTING IN CHAIR WITH EYES CLOSED AT THIS TIME. RECLINED PT CHAIR TO HELP ENCOURAGE REST. PT AT 60 DEGREE ANGLE AT THIS TIME. PIPAP ON WITH RR 20-25. PT APPEARS MUCH MORE RELAXED AND COMFORTABLE AT THIS TIME. WILL CONTINUE TO CLOSELY MONITOR.
--- NOTE | 2017-12-17 22:50 | NUR ---
MD IN UNIT AND UPDATED ON PT STATUS. MD AWARE PT IS RESTING IN CHAIR AND STIRS A LITTLE WITH READJUSTING CORDS, BUT QUICKLY FALLS BACK TO SLEEP. PT VITALS A LITTLE ON THE SOFTER SIDE. CHECKING VITALS OFTEN AND WILL CONTINUE TO CLOSELY MONITOR.
--- NOTE | 2017-12-17 23:00 | NUR ---
PT BP 79/45. MD NOTIFIED. PER MD GIVE 500ML BOLUS NOW OVER 30 MINUTES AND INCREASE FLUIDS. WILL CONTINUE TO CLOSELY MONITOR.
--- NOTE | 2017-12-17 23:30 | NUR ---
BLOOD PRESSURE IN THE 90'S SYSTOLIC. PER MD CONTINUE TO ENCOURAGE PT TO REST, PT IS LEATHARGIC AT THIS TIME. PT REMAINS ON BIPAP AT THIS TIME WITH SPO2 99% ON 35% FIO2. PT RR 18-25. BREATH SOUNDS REMAIN VERY DIMINISHED THROUGHOUT. WILLCONTINUE TO CLOSELY MONITOR.
--- NOTE | 2017-12-18 | NUR ---
NOTIFIED MD THAT PT URINATED 300 PRIOR TO FALLING ASLEEP. PER MD LET PT SLEEP DONT WAKE IF SHE HASNT URINATED. WILL REASSESS IN THE AM IF SHE HASNT URINATED YET. PT HAD ATTENDS ON INCASE OF INCONTINENCE.
--- NOTE | 2017-12-18 00:35 | NUR ---
PT WOKE READJUSTED HERSLEF IN THE CHAIR AND IS BACK TO SLEEP. WILL CONINUE TO CLOSELY MONITOR.
--- NOTE | 2017-12-18 02:05 | NUR ---
PT CONTINUES TO READJUST HERSELF IN THE CHAIR OCCASIONALLY. PT DENIES ANY NEEDS AT THIS TIME. WILL CONTINUE TO CLOSELY MONITOR.
--- NOTE | 2017-12-18 02:35 | NUR ---
PT WOKE YELLING OUT "I HAVE TO PEE". PT IS CONFUSED AND NOT FOLLOWING COMMANDS WELL. PT ASSISTED TO CAMMODE WITH 2 PERSON ASSIST. PT SAT ON CAMMODE AND CONTINUED I STATING I HAVE TO PEE. TRIED TO CONTINUE TO REORIENT PT THAT SHE WAS ON THE TOILET AND SHE CAN PEE. PT DOES NOT COMPREHENED THAT SHE IS ON THE TOILET. PT HAS BECOME VERY AGITATED YELLING AT STAFF AND PUNCHING/SWINGING AT STAFF MEMBERS. STAFF WERE ABLE TO ASSIST HER BACK TO THE CHAIR. PT IS VERY AGITATED AND MAD "STATING I DONT LIKE YOU" TO ALL STAFF MEMBERS. CALLED MD TO UPDATE THAT PT HAS NOT URINATED AND UPDATE ON CURRENT SITUATION WITH PT SWINGING AT STAFF MEMBERS. STAFF TRIED TO BLADDER SCAN PT, BUT PT DID NOT TOLERATE. NEW ORDER FOR A OVIEDO PLACEMENT. WILL GIVE PT PRN SEROQUEL FOR AGITATION AND LET PT RELAX FOR A FEW BEFORE OVIEDO INSERTION.
--- NOTE | 2017-12-18 03:15 | NUR ---
OVIEDO CATHETER PLACED D/T PT UNABLE TO VOID AND STATING SHE HAS TO PEE. PT WAS ASSISTED TO BED. PLACED OVIEDO AND PT BACK UP TO EDGE OF BED. PT RR 30-40 AT TIMES. DECREASED STIMULATION. WILL ENCOURAGE REST AT THIS TIME.
--- NOTE | 2017-12-18 03:30 | NUR ---
PT RESTING IN CHAIR WITH EYES CLOSED. WILL ENCOURAGE SLEEP AT THIS TIME.
--- NOTE | 2017-12-18 03:49 | NUR ---
PT WOKE. PT MUCH MORE PLEASANT AND ABLE TO FOLLOW COMMANDS. PT REMINDED THAT SHE IS IN THE HOSPITAL. PT STATED "OKAY, WELL I AM GOING TO GO BACK TO SLEEP THEN". PT SITTING BACK IN CHAIR RELAXING AT THIS TIME. RT IN ROOM FOR MORNING NEB TREATMENT. WILL CONTINUE TO CLOSELY MONITOR.
--- NOTE | 2017-12-18 05:30 | NUR ---
PT REMOVED BIPAP AND IS PLEASANTLY CONFUSED. PT REFUSES TO ALLOW BIPAP TO BE BACK ON. PT ALLOWED STAFF TO PLACE NASAL CANUAL ON. PT IS VERY KIND RIGHT NOW AND BLOWING KISSES TO THE STAFF AND TELLING THEM SHE LOVES ALL OF US, BUT THAT IT IS HER TIME TO GO BE WITH THE LORD.
--- NOTE | 2017-12-18 06:01 | NUR ---
CALLED MD TO UPDATE THAT PT IS REFUSING TO WEAR BIPAP AND REFUSING BLOOD GAS. PER MD HOLD OFF FOR NOW AND TRY AGAIN IN 30 MINUTES. PT IS ON 3L NC. WILL CONTINUE TO CLSOELY MONITOR.
--- NOTE | 2017-12-18 06:15 | NUR ---
PT IS SITTING IN CHAIR SMILLING AND TALKING OUT LOUD WITH THE LORD. PT STATES SHE IS READY TO GO TO HER [facility] PL[facility]. SHE STATES "IT IS MY TIME TO GO, I DONT WANT TO HURT".
--- NOTE | 2017-12-18 06:40 | NUR ---
CALLED MD TO UPDATE THAT PT WILL NOT ALLOW STAFF TO PLACE HER ON BIPAP. PT ALSO REFUSED TO LET STAFF DO AN ABG. PER MD CALL POA AND ALL FAMILY AND HAVE THEM COME IN TO DETERMINE THE NEXT STEP IN THEIR MOTHERS CARE. THE PT CONTINUES TO SAY SHE WANTS TO GO BE WITH THE LORD AND IS DONE WITH ALL THIS AND IS JUST TIERD AND IS READY TO . CALLING PARESH MCLEOD.
--- NOTE | 2017-12-18 07:00 | NUR ---
HAD A VERY DIFFICULT TIME CONTACTING FAMILY AND POA. UNABLE TO CONTACT PARESH MCLEOD. HE IS NOT HOME AND DOES NOT HAVE A CELL PHONE NUMBER. CALLED PTS DAUGHTER TAMIE AND SPOKE WITH HER REGUARDING SITUATION. SHE GAVE ME HER BROTHER AL NUMBER BECAUSE ORTIZ AND PARESH WORK TOGETHER. SPOKE WITH ORTIZ. HE STATED PARESH IS ON HIS WAY. UPDATED ON SITUATION AND MD WANTING ALL FAMILY TO COME IN AT THIS TIME.
--- NOTE | 2017-12-18 07:30 | NUR ---
BEDSIDE REPORT RECIEVED. PATIENT IN CHAIR OVIEDO CATH IS PATENT WITH CLEAR YELLOW URINE NOTED. IVF PATENT. IS NOT TRACKING. NOT AWARE OF PERSON, PLACE OR TIME. ENCOURAGED TO USE BIPAP.
--- NOTE | 2017-12-18 07:35 | NUR ---
SON IN ROOM. BIPAP APPLIED. TOOK SIPS OF WATER W/O PROBLEMS.
--- NOTE | 2017-12-18 07:36 | NUR ---
UPDATED MD THAT PT POA PARESH IS HERE. MD WILL BE DOWN SHORTLY.
--- NOTE | 2017-12-18 08:15 | NUR ---
ABG RESULTS ON 35%, I=18/E=10. PH-7.32, PCO2-60.9, PO2-106, HCO3-30.6. DR. VELIZ IS AWARE.
--- NOTE | 2017-12-18 08:51 | NUR ---
CHAIR ALARM PLACED PER RN REQUEST.
--- NOTE | 2017-12-18 09:13 | NUR ---
PT IS SITTING UP IN THE CHAIR AND SEEMS RESTLESS. WILL CONTINUE TO MONITOR.
--- NOTE | 2017-12-18 11:29 | NUR ---
CONTINUE TO SIT IN CHAIR. HAS BEEN ON BIPAP THIS MORNING. FAMILY MEMBERS HAVE BEEN IN ROOM.
--- NOTE | 2017-12-18 12:03 | NUR ---
ASSESSMENT UNCHANGED. WILL HAVE MRI AND EEG LATER TODAY.
--- NOTE | 2017-12-18 13:06 | NUR ---
RESTING IN CHAIR, SITTING STRAIGHT UP, R FOOT MOVING FROM LEG REST TO FLOOR AND BACK.
--- NOTE | 2017-12-18 14:00 | NUR ---
BACK TO BED WITH ASSIST. VERY SHORT OF BREATH WITH EXERTION.
--- NOTE | 2017-12-18 15:30 | NUR ---
EXTREMLEY ANXIOUS. SEROQUEL 12.5 MG PO GIVEN. SON IS AT BEDSIDE.
--- NOTE | 2017-12-18 16:00 | NUR ---
very restless, DIFFICULT TO UNDERSTAND. NOT MAKING SENSE WITH WHAT SHE IS SAYING. TALKING ABOUT DYING. HAS BEEN C/O OF INTERMITTENT CHEST PAIN. ASSESSMENT DONE. LUNGS REMAIN VERY DIMINISHED THROUGH OUT.
--- NOTE | 2017-12-18 16:10 | NUR ---
DR. VELIZ HERE TO SEE PATIENT AND TALK TO SON. PATIENT NOW IS DNR/DNI.
--- NOTE | 2017-12-18 16:10 | NUR ---
DR VELIZ HERE. ORDERS RECIEVED TO DC CLONIDINE PATCH, THIS DON.E
--- NOTE | 2017-12-18 16:30 | NUR ---
IS MUCH MORE CALM. ABGS OBTAINED EARLIER. PH-7.30, PCO2-34, O2-56. THIS ON NC AT 3L. BIPAP REAPPLIED.
--- NOTE | 2017-12-18 19:28 | NUR ---
REMAINS RESTFUL ON BIPAP. REPORT TO NEXT SHIFT.
--- NOTE | 2017-12-18 20:00 | NUR ---
RECEIVED REPORT AT 1930, FOUND PT SITTING ON SIDE OF BED TALKING ABOUT THING THAT MAKE NO SENSE. SHE THINKS THAT I AM GOD. PT KEPT ASKING FOR FORGIVNESS IN CASE SHE DID SOMETHING WRONG. CALMED PT DOWN.
--- NOTE | 2017-12-18 22:00 | NUR ---
AT 1999 PT WAS TACHY IN THE 130'S. SCHEDULED LOPRESSOR WAS GIVEN. HR NOW IS IN THE 80'S. PT IS ONLY ORIENTED TO SELF AND . PT TALKS TO SELF. EVERYTHING SEEMS TO HAVE A BIBLICAL TONE. PT TOLD ME FIRST I WAS AN PRETTY THEN PT TOLD ME I WAS THE DEVIL. ALL LO HAVE INSPIRATORY AND EXPIRATORY WHEEZING. ABD SOUNDS ARE PRESENT, BILATERAL TRACE EDEMA PRESENT IN BOTH LOWER LEGS. PT IS TOLERATING BI-PAP AND IS SITTING IN CHAIR. PRN SEROQUEL WAS GIVEN DUE TO RESTLESSNESS AND AGITATION AROUND 2129. URINE OUTPUT IS MARGINAL.
--- NOTE | 2017-12-19 | NUR ---
PT IS STILL NOT SLEEPING. PT IS PULLING ON CARIAC MONITOR LEADS AND DID MANAGE TO PULL THEM OFF. PT DID THE SAME WITH PULSE OX. PT IS STILL ONLY ORIENTED TO SELF. WILL CALL MD VELIZ FOR MORE SEROQUEL TO HELP PT SETTLE SOME.
--- NOTE | 2017-12-19 00:25 | NUR ---
MD VELIZ CALLED. RECEIVED ORDER FOR A ONE TIME DOSE OF SEROQUEL 12.5MG PO.
--- NOTE | 2017-12-19 00:29 | NUR ---
AN ASSESSMENT WAS ATTEMPTED AT 0000. PT IS NOT REALLY ABLE TO FOLLOW DIRECTIONS AT THIS TIME. THEREFORE, AN ASSESSMENT WAS NOT REALLY POSSIBLE IN REGARDS TO HER NEUROLOGICAL AND RESPIRATORY STATUS.
--- NOTE | 2017-12-19 02:00 | NUR ---
PT IS RESTING AT TIMES ONLY. PT IS STILL CONVERSING WITH HERSLEF. SO FAR PT HAS NOT PULLED LEADS OFF AGAIN. RR RATE IS 18-22 AT THIS TIME. OTHER V/S ARE WDL. URINE OUTPUT IS ADEQUATE.
--- NOTE | 2017-12-19 04:00 | NUR ---
PT STILL HAS NOT SLEPT FOR ANY PROLONGED TIME. PT DID FOLLOW COMMANDS TO TAKE DEEP BREATHS WHEN LUNGS WERE AUSCULTATED. ALL LOBES ARE CLEAR BUT DIMINISHED AT THIS TIME. HR IS TACHY 100-110, RR IS ANYWHERE FROM THE MID TEEN'S TO 30 WHEN PT GETS RESTLESS. PT IS STILL ONLY ORIENTED TO SELF AND . THERE HAS BEEN NO CHANGE IN A POSITIVE DIRECTION FOR THIS PT so far.
--- NOTE | 2017-12-19 04:30 | NUR ---
PT HAS BECOME VERY AGITATED AND ANXIOUS. HR 140-145. RR UP TO MID 30'S. PT KEEPS STATING THAT SHE IS AFRAID OF DYING. MD VELIZ TO BE CALLED ABOUT HR AND BP.
--- NOTE | 2017-12-19 04:40 | NUR ---
MD VELIZ CALLED. RECEIVED ORDER FOR CATAPRESS PATCH 0.1MG. PT AT THIS TIME HAS SETTLED DOWN SOME. HR IN THE 80'S. RR AT 20.
--- NOTE | 2017-12-19 06:27 | NUR ---
PT HAD SOMEWHAT OF A DIFFICULT NIGHT. PT ONLY RESTED FOR SHORT INTERVALS BUT NEVER REALLY SLEPT. PT HAS ONLY BEEN ORIENTED TO SELF AND ALL SHIFT. PT AT TIMES IS NOT ABLE TO FOLLOW SIMPLE COMMANDS SUCH TAKING DEEP BREATHS IN AND OUT FOR AN ASSESSMENT. AT START OF SHIFT ALL LOBES HAD INSPIRATORY AND EXPIRATORY WHEEZING PRESENT. AT 0400 ALL LOBES WERE CLEAR BUT DIMINISHED. AT AROUND 0430 MD VELIZ HAD TO BE CALLED DUE TO HR IN THE 140'S. ORDER FOR CATAPRESS PATCH 0.1MG WAS GIVEN. V/S SINCE HAVE BEEN BETTER. PT SEEMS TO BE VERY AFRAID OF DYING FROM WHAT SHE STATED TO ME. PT ALSO HAS LONG CONVERSATIONS WITH SELF WHICH ALL HAVE A EVANGELICAL UNDERTONE. PT IS HARD TO CALM WHEN SHE GETS AGITATED AND PANICKED. DAILY STANDING WEIGHT HAS NOT BEEN DONE SO FAR SINCE PT FOR THE FIRST TIME THIS SHIFT IS IN A SOMEWHAT RELAXED STATE. PT HAS KEPT BI-PAP ON ALL SHIFT. PT ALSO HAD A TEMP OF 99.4 AT START OF SHIFT BUT SINCE HAS REMAINED AFEBRILE. THIS PT HAS OVERALL REMAINED THE SAME SINCE START OF SHIFT. URINE OUTPUT IS ADEQUATE OVERALL.
--- NOTE | 2017-12-19 07:30 | NUR ---
BEDSIDE REPORT RECIEVED. PATIENT SITTNG UP IN BED WITH BIPAP ON.
--- NOTE | 2017-12-19 07:40 | NUR ---
RESTLESS. PATIENT STOOD AT BEDSIDE. PT IS NOT DIRECTABLE. TO CHAIR. IS VERY CONFUSED, IS DIFFICULT TO UNDERSTAND. NOT ABLE TO REASON WITH PATIENT.
--- NOTE | 2017-12-19 08:45 | NUR ---
UNABLE TO GET PATIENT TO TAKE PO MEDS. DR. VELIZ UPDATED REGARDING OVER ALL CONDITIONS WELL NOT TAKING PO MEDS. ORDERS RECIEVED TO GIVE LOPRESSOR 5 MG IV AND HALDOL 2 MG IV. THIS DONE.
--- NOTE | 2017-12-19 09:00 | NUR ---
IS MORE CALM AFTER HALDOL GIVEN.
--- NOTE | 2017-12-19 09:14 | NUR ---
CHANGED PATIENT'S BED LINENS. PATIENT REFUSED TO EAT HER BREAKFAST AND DRINK SOME WATER AND JUICE. SHE IS SITTING UP IN HER CHAIR WITH BIPAP ON.
--- NOTE | 2017-12-19 10:28 | NUR ---
BLOOD GAS RESULTS. PH-7.33, PCO2-56.2, PO2-92, HCO3-28.8 SAT 98.4, THIS ON 30% FIO2 VIA BIPAP.
--- NOTE | 2017-12-19 10:29 | NUR ---
I WAS SITTING IN THE ROOM WITH PATIENT MAKING SURE SHE WASN'T GETTING UP FROM HER CHAIR. RIGHT NOW HER DAUGHTER AND HER GRANDSONS ARE VISITING HER.
--- NOTE | 2017-12-19 10:44 | NUR ---
HELPED THE DAUGHTER CHANGE HER GOWN. THE DAUGHTER GAVE HER A BED BATH AND PUT LOTION ON HER FEET AND ALSO NEW SOCKS.
--- NOTE | 2017-12-19 11:25 | NUR ---
PATIENT IS UP IN HER CHAIR DAUGHTER IS RUBBING HER FEET. TRYING TO GET HER TO DRINK SOMETHING.
--- NOTE | 2017-12-19 11:35 | NUR ---
PULLING OFF OXIMETER. UNABLE TO REAPPLY OXIMETER DUE TO AGITATION.
--- NOTE | 2017-12-19 12:30 | NUR ---
UNABLE TO TAKE ANY LIQUIDS AT THIS TIME.
--- NOTE | 2017-12-19 14:31 | NUR ---
FAMILY MEMBERS ARE IN ROOM.
--- NOTE | 2017-12-19 14:45 | NUR ---
I WAS SITTING IN HER ROOM WHILE NURSE WENT TO LUNCH. THAN AROUND 1400 TODAY HER DAUGHTER AND GRANDSON CAME BACK TO VISIT. SHE HAS A CHAIR ALARM ON.
--- NOTE | 2017-12-19 17:34 | NUR ---
PT REMAINS UP IN THE CHAIR WITH BIPAP INPLACE, PT HAS PULLED APART THE TAPE SPO2 MONITOR THAT WAS ON HER FINGER. WILL TRY TO PLACE ON ON HER FOOT.
--- NOTE | 2017-12-19 18:04 | NUR ---
PT PULLED APART THE THE TAPE SPO2 MONITOR AND IS UNWILLING TO ALLOW STAFF TO PLACE AN ADDITIONAL ONE AT THIS TIME. PT CONTIOUES TO SIT UP IN THE CHAIR AND HAS TV ON, SHE HAS EYES CLOSED AND HOLDING THE BPAP IN HER HAND BUT IS NOT TRYING TO REMOVED AT THIS TIME. FAMILY HAS BEEN IN AND OUT THROUGHTOUT THE DAY TODAY.
--- NOTE | 2017-12-19 18:10 | NUR ---
PT GIVEN TWO WARM BLANKETS AND APPERS TO BE TRYING TO SLEEP IN THE CHAIR.
--- NOTE | 2017-12-19 18:59 | NUR ---
STAFF HAS BEEN TRYING TO OFFER PT FLUIDS/CLEAR LIQUIDS, BUT PT IS UNABLE TO TAKE PO AT THIS TIME. SHE REMOVED BPAP, BUT THEN IS UNABLE TO FIGURE OUT HOW TO DRINK FLUIDS AT THIS TIME.
--- NOTE | 2017-12-19 19:20 | NUR ---
SHIFT REPORT RECEIVED FROM SHARLENE CHOWDHURY. PT IS CURRENTLY SITTING UP IN CHAIR, BIPAP IN PLACE. IVELISSE PATENT. IVF INFUSING WNL. CHAIR ALARM IN PLACE.
--- NOTE | 2017-12-19 20:52 | NUR ---
ASSESSMENT COMPLETED. PT APPEARS DROWSY, REMAINS CONFUSED, NOT ANSWERING QUESTIONS AND NOT FOLLOWING COMMANDS. DOES NOT APPEAR TO BE IN ANY DISTRESS. LUNGS DIM THROUGHOUT, BIPAP IN PLACE, BIPAP SETTINGS: 20/12, FIO2 30%. HR REGULAR, TACHY IN 110'S. BOWEL TONES ACTIVE. SKIN INTACT, SCATTERED BRUISES NOTED. TRACE EDEMA IN BLE. IV PATENT, INFUSING WNL. OVIEDO PATENT, DRAINING YELLOW URINE. CHAIR ALARM ON FOR SAFETY. WILL CONTINUE TO MONITOR.
--- NOTE | 2017-12-19 21:05 | NUR ---
PT STARTING TO APPEAR ANXIOUS, REACHING OUT AND SWATTING AT THE AIR, PULLING ON PULSE OX TUBING. SCHEDULED HALDOL GIVEN AT THIS TIME, WILL CONTINUE TO MONITOR.
--- NOTE | 2017-12-19 22:14 | NUR ---
CALLED AND SPOKE TO DR. VELIZ REGARDING PT'S URINE OUTPUT, FOR THE LAST 3 HOURS SHE PUT OUT 100ML URINE. NEW ORDERS RECEIVED TO INCREASE IVF RATE TO 125ML/HR. DONE AT THIS TIME.
--- NOTE | 2017-12-19 23:39 | NUR ---
PT CONTINUES TO SIT UP IN CHAIR WITH BIPAP IN PLACE, SETTINGS UNCHANGED. RR: 23, SPO2: 99%. HR: 106. APPEARS COMFORTABLE, DOES NOT APPEAR ANXIOUS. CHAIR ALARM REMAINS IN PLACE FOR SAFETY. WILL CONTINUE TO MONITOR.
--- NOTE | 2017-12-20 00:26 | NUR ---
ASSESSMENT COMPLETED. NO CHANGES FROM PREVIOUS ASSESSMENT. REMAINS CONFUSED, NOT FOLLOWING DIRECTIONS, NOT ANSWERING QUESTIONS. DOES NOT APPEAR TO BE IN DISTRESS. BIPAP REMAINS IN PLACE, SETTINGS UNCHANGED. HR TACHY. IVF INFUSING WNL. OVIEDO PATENT. CHAIR ALARM ON. WILL CONTINUE TO MONITOR. CLOSELY.
--- NOTE | 2017-12-20 00:32 | NUR ---
DR. VELIZ WAS ALREADY ON THE PHONE SO I UPDATED HIM THAT PT'S UO FOR LAST 2 HOURS WAS 75MLS. NO CHANGES MADE TO FLUIDS AT THIS TIME, ORDERS RECEIVED FOR MORNING LABS: CBC, CMP, MAG.
--- NOTE | 2017-12-20 01:06 | NUR ---
PT REMAINS AWAKE, SITTING UP IN CHAIR. SHE APPEARS TO BE MORE AGITATED AND IS PULLING ON PULSE OX WIRES AND SOCKS. SCHEDULED HALDOL GIVEN AT THIS TIME. CHAIR ALARM REMAINS ON FOR SAFETY. WILL CONTINUE TO MONITOR CLOSELY.
--- NOTE | 2017-12-20 03:15 | NUR ---
PT REMAINS SITTING UP IN CHAIR, OCCASIONALLY RESTING WITH EYES CLOSED. DOES NOT APPEAR TO BE IN ANY DISTRESS. RR:20, SPO2:99% ON BIPAP. OVIEDO PATENT. IVF INFUSING WNL. CHAIR ALARM ON FOR SAFETY.
--- NOTE | 2017-12-20 04:30 | NUR ---
ASSESSMENT COMPLETED. PT REMAINS CONFUSED, SLIGHTLY AGITATED, NOT ANSWERING QUESTIONS OR FOLLOWING COMMANDS. DOES NOT APPEAR TO BE IN ANY PAIN. LUNGS REMAIN DIM, BIPAP IN PLACE. HR REGULAR, TACHY. IV PATENT, FLUSHES WNL. OVIEDO PATENT. WHEN I ENTERED ROOM, FOUND THAT PT HAD DISCONNECTED IV TUBING FROM IV, THOUGH BASED ON THE MINIMAL AMOUNT OF LIQUID ON THE FLOOR, I DO NOT THINK SHE WAS DISCONNECTED FOR VERY LONG. NEW IV TUBING CONNECTED, IV FLUSHES WNL AND DRAWS BLOOD BACK. CHAIR ALARM REMAINS ON. WILL CONTINUE TO MONITOR.
--- NOTE | 2017-12-20 06:22 | NUR ---
PT CONTINUES TO SIT UP IN CHAIR WITH BIPAP IN PLACE. 0600 MEDICATIONS GIVEN. PT APPEARS COMFORTABLE. CHAIR ALARM ON. WILL CONTINUE TO MONITOR CLOSELY.
--- NOTE | 2017-12-20 07:54 | NUR ---
PT REMAINS UP IN THE CHAIR AT THIS TIME, DID NOT OPEN EYES, APPEARS TO BE SLEEPING, WHEN STAFF LIFTS RIGHT LEG BACK UP INTO THE CHAIR PT WILL PLACE IT BACK TO THE GROUND. BUT WHEN STAFF REPOSITIONED PT IN CHAIR SOME PT REMAINED IN THAT POSITION.
--- NOTE | 2017-12-20 08:58 | NUR ---
PT REMAINS UP IN THE CHAIR WARM BLANKETS GIVEN
--- NOTE | 2017-12-20 09:05 | NUR ---
PT HAS EYES OPEN AND HANGING ON TO HER O2 TUBING AT THIS TIME, NOT FOLLOWING DIRECTIONS AT THIS TIME. BPAP REMAINS INPLACE
--- NOTE | 2017-12-20 10:07 | NUR ---
PT IS BECOMING MORE MODEL IN THE LOWER LEGS, COOL TO TOUCH, REMOVED FROM BPAP AND PLACED ON OXY MASK TO MOVE FROM CHAIR TO BED, PT DID NOT FIGHT STAFF WITH THIS, BUT WAS PULLING AT TUBES OR HANGING ON TO THEM. DR VELIZ NOTIFIED AND PT WAS PLACED BACK ON BPAP. ORAL CARE DONE WIHILE ON OXEY MASK, AND PT HAS SOME BRUSING ON BRIDGE OF NOSE. ALLEVE DRESSING APPLIED TO THE BRIDGE OF HER NOSE. RT PRESENT AND PLACING HEATED AIR FOR PT. NEB TX STRATED ALSO AT THIS TIME. DR VELIZ TALKING WITH FAMILY VIA PHONE.
--- NOTE | 2017-12-20 10:18 | NUR ---
PT REPOSITIONED TO HER RIGHT SIDE, PILLOW UNDER LEFT HIP. BIPAP INPLACE, DR VELIZ NOTIFIED ALL OF THE PT FAMILY THIS AM. NEW ORDERS RECEIVED. [facility] NOTIFIED.
--- NOTE | 2017-12-20 10:44 | NUR ---
FAMILY BOTH SON HERE AT THIS TIME EXPLAINED CONDITION OF THE PATIENT AT THIS TIME. IT APPEARS THEY UNDERSTAND. [facility] CALLED.
--- NOTE | 2017-12-20 11:24 | NUR ---
MORE FAMILY IS HEAR AT THIS TIME WITH PT, PT REMAINS UNRESPONTIVE SPO2 [address] WITH 20/12 FIO2 30%. PT APPEARS TO BE COMFORTABLE AT THIS TIME AND FAMILY AGREES WITH COFFEE MAKER.
--- NOTE | 2017-12-20 12:07 | NUR ---
PT EYES REMAIN CLOSED, DOES NOT RESPONED TO VERBAL HAS MOVEMENTS, WITHOUT PORPUSE.
--- NOTE | 2017-12-20 12:07 | NUR ---
PT RESTLESS MEDICATED WITH 4MG MORPHINE IVP AT THIS TIME. FAMILY AT BEDSIDE.
--- NOTE | 2017-12-20 12:46 | NUR ---
BIPAP REMOVED AT THIS TIME, PT AGUNYL BREATHING WITH BIPAP. PLACED ON OXY MASK AT 15L'S SPO2 77% WITH RESP 15 AT THIS TIME.
--- NOTE | 2017-12-20 13:35 | NUR ---
PT APPEARS TO BE RESTING COMFORTABLE AT THIS TIME OXY MASK REMAINS AT 15L'S. FAMILY REMAINS AT THE BEDSIDE AND FEEL THAT PT IS COMFORTABLE ALSO AT THIS TIME.
--- NOTE | 2017-12-20 14:42 | NUR ---
pt turned to her left side at this time, foly care completed also at this time.
--- NOTE | 2017-12-20 15:35 | NUR ---
PT CONTIOUES TO APPEAR COMFORTABLE AT THIS TIME, PT SON PARESH AT THE BEDSIDE AT THIS TIME.
--- NOTE | 2017-12-20 15:53 | NUR ---
PT FAMILY REMAIN AT THE BEDSIDE, SHE APPEARS TO BE COMFORTABLE AT THIS TIME.
--- NOTE | 2017-12-20 16:35 | NUR ---
PT SPO2 DECREASED TO 62% ON 2L'S VIA OXYMASK PER DR VELIZ AT THIS TIME. FAMILY HAS BEEN IN AND OUT OF THE ROOM ALL DAY. PT HEART RATE IS DECREASING AND SPO2 IS DECREASING AT THIS TIME.
--- NOTE | 2017-12-20 16:45 | NUR ---
pt repositioned at this time, heart rate has decreased to 40's at this time and spo2 66%. pt is at end stage COPD. Resp 10.
--- NOTE | 2017-12-20 17:02 | NUR ---
YPT PASS AWAY AT 1702, FAMILY WAS NOT PRESENT BUT CALLED [facility]. HE DID NOT WANT TO COME BACK INTO THE HOSPITAL AT THIS TIME.
--- NOTE | 2017-12-20 17:29 | NUR ---
FAMILY HAS ARRIVED AT THIS TIME, [facility] CALLED AND [facility] CALLED ALSO AT THIS TIME. AWATTING CALL BACK FROM [facility].
--- NOTE | 2017-12-20 17:37 | NUR ---
ALL PERSONAL BELONGINGS SENT WITH PT'S SUMMER PARESH. ALL PAPER WORK SIGNED AT THIS TIME ALSO.
--- NOTE | 2017-12-23 14:18 | NUR ---
ON 12 18, I WAS CALLED IN CONCERNING THIS PT, I MET WITH FAMILY AND PRAYED WITH THEM AND PT. I TALKED WITH PT AND HER SON, SHE WAS ACTIVELY TALKING, SHORT OF BREATH AND SOMETIMES DELUSIONAL. AFTER A SHORT TIME I LEFT. I WENT ABOUT OTHETR DUTIES AND KEPT CHECKING BACK WITH FAMILY. I EARLY AFTERNOON CHILDREN (GRAND OR GREAT-GRANDCHILDREN) WERE BROUGHT IN TO SEE PT. SHE WAS VERY EXCITED TO SEE THEM. LATER I STOPPED TO SEE SON PARESH AND TOLD HIM I WAS GOING HOME FOR THE DAY BUT WOULD BE AVAILABLE. I DID NOT HEAR ANYTHING ELSE. ON 12 20 I WAS CALLED AT 1330 CONCERNINT PT. I CAME IN. HER SON PARESH WAS HERE SO I PRAYED WITH HIM THAT FAMILY HAVE MUCH KARL AND PEACE DURING THIS DIFFICULT TIME.THE NURSE SAID SHE COULD NOT REALLY TELL HOW LONG IT WOULD BE TILL PT. PASSED SO I WENT TO DINNER AT 1630. I RECIEVED A CALL JUST AFTER 1700 THAT PT. HAD PASSED. I CAME BACK IN. FAMILY HAD ALREADY LEFT AND NURSE HAD CALLED HOME. I WAITED FOR TRANSPORT VAN TO ARRIVE, THEN WENT DOWN TO ESCORT TRANSITION COACH IN. WHEN BODY WAS ON COT, I COVERED WITH PASSAGE QUILT AND ESCORTED TO HOME TRANSPORT VAN.
== END 2017-12-20 17:02 | DRG 189 ==
LOC: ED 04:31 → MS 06:11 → CCU 12-17 19:28
PROVIDERS: ADMIT Internal Medicine
PROC: 5A09357 Assistance with Respiratory Ventilation, Less than 24 Consecutive Hours, Continuous Positive Airway Pressure (ICD-10-PCS; principal; 2017-12-16)
DX: J96.21 Acute and chronic respiratory failure with hypoxia (principal); G93.41 Metabolic encephalopathy; J44.1 Chronic obstructive pulmonary disease with (acute) exacerbation; I50.30 Unspecified diastolic (congestive) heart failure; I13.0 Hypertensive heart and chronic kidney disease with heart failure and stage 1 through stage 4 chronic kidney disease, or unspecified chronic kidney disease; Z51.5 Encounter for palliative care; J96.22 Acute and chronic respiratory failure with hypercapnia; E78.5 Hyperlipidemia, unspecified; K21.9 Gastro-esophageal reflux disease without esophagitis; N18.3 Chronic kidney disease, stage 3 (moderate); G47.33 Obstructive sleep apnea (adult) (pediatric); I25.2 Old myocardial infarction; Z99.81 Dependence on supplemental oxygen; Z86.73 Personal history of transient ischemic attack (TIA), and cerebral infarction without residual deficits; Z87.891 Personal history of nicotine dependence; Z66 Do not resuscitate; Z88.5 Allergy status to narcotic agent; Z91.040 Latex allergy status; Z79.02 Long term (current) use of antithrombotics/antiplatelets; Z79.51 Long term (current) use of inhaled steroids; Z79.52 Long term (current) use of systemic steroids; Z79.899 Other long term (current) drug therapy
CPT/HCPCS: 36415; 36600; 71045; 80048; 80053; 80069; 82803; 83735; 83880; 84484; 85025; 94640; 94645; 94660; 94762; J0456; J0692; J0696; J1630; J1650; J2270; J2920; J2930; J7030; J7040; J7042; J7050